=== PATIENT | female | born 1945 | race Caucasian/White ===

== ENCOUNTER 2016-11-19 10:16 | Emergency (ER) | payer OTHER ==
[2016-11-19 10:21] VITALS: RESP 18; TEMP 98.2
[2016-11-19] MEDS ORDERED: IPRATROPIUM/ALBUTEROL 3 ML DEYVIAL IH ONE (10:32)
--- NOTE | 2016-11-19 10:35 | EDPHY ---
HPI/HX/ROS/PE/MDM Narrative: CHIEF COMPLAINT: Chest congestion HPI: The patient is a 70 y/o female arriving from urgent care complaining of chest congestion and cough for the last few days. She has a history of VSD and has been told to take antibiotics if she ever gets a chest infection so she took a few doses of amoxicillin she had at home. Neither the amoxicillin nor Mucinex helped her symptoms. She continues to complain of feeling congested with an intermittent productive cough and yellow-green mucus. She went to urgent care today, but they referred her to the ED because of a low SpO2 of 89%. She is not hypoxemic here. She denies chest pain, fever, and respiratory disease history. REVIEW OF SYSTEMS: Aside from elements discussed in the HPI, a comprehensive 10-point review of systems was reviewed and is negative. PMH: Hypertension, hyperlipidemia, unrepaired VSD SOCIAL HISTORY: Lives in [place] PHYSICAL EXAM: General:Patient is alert, in no acute distress. ENT:Eyes are normal to inspection. ENT inspection normal. Neck: Normal inspection. Full range of motion. Respiratory:No respiratory distress. Breath sounds clear bilaterally but some decreased air movement. Cardiovascular: Regular rate and rhythm. Strong peripheral pulses. Normal cap refill. Abdomen:The abdomen is nontender to palpation. There are no peritoneal signs. There are normal bowel sounds. Back: Normal to inspection. No tenderness to palpation. Skin: Normal color. No rash. Warm and dry. Extremities: Normal appearance. Full range of motion. Neuro: Oriented x3. Normal motor function. Normal sensory function. ED Course: This is a 70 y/o female presenting with a several day history of cough and what she describes as chest congestion. Her breath sounds are clear, but slightly distant. Her exam is otherwise unremarkable and her vitals are within normal limits. She initially described "chest heaviness" with her symptoms but is reluctant to pursue additional testing. We discussed the risks of not doing a cardiac workup. She declines additional testing for cardiac etiology including EKG and cardiac enzymes stating, "I am completely comfortable with that; I do not believe this is my heart." Plan for o [facility] treatment and chest x-ray. Study: Chest x-ray Indication: Cough Results: Chest x-ray was obtained. The results of the study are Enlarging rounded masslike density projected over the cardiac silhouette, hiatal hernia versus other mediastinal mass. Correlation with esophagram or chest CT would be of benefit in confirmation, if not imaged previously. Otherwise negative chest. The study was read by the radiologist, Dr. Osuna. I viewed the images myself on the PACS system. 1110: Discussed imaging results with the patient. She declined chest CT and states she is aware of the mass/hernia from previous imaging. She will be discharged with scripts for azithromycin, Tessalon pearls, and Hycodan syrup for her symptoms and referral to PCP if not improved over the next few days. Return precautions given. She is comfortable with this plan. MDM: This patient presents with signs and symptoms of bronchitis. She reports low oxygen saturation at urgent care, but her oxygen saturation here is above 90% and she is in no distress. Her chest x-ray does not reveal pneumonia. She has already started herself on amoxicillin secondary to obvious CP. I think azithromycin would be more appropriate coverage although in truth, no antibiotics are fully indicated. We discussed strict return precautions. I see no signs of pneumonia, pulmonary embolus, hypoxemia, acute coronary syndrome or CHF. - Data Points Medications Given: Discontinued Medications Albuterol/Ipratropium (Duoneb) 3 ml IH EDNOW ONE Stop: 11/19/16 10:33 Last Admin: 11/19/16 10:39 Dose: 3 ml General Time Seen by Provider: 11/19/16 10:27 Initial Vital Signs: Initial Vital Signs Temperature (C) 36.8 C 11/19/16 10:18 Heart Rate 91 11/19/16 10:18 Respiratory Rate 18 11/19/16 10:18 Blood Pressure 159/101 H 11/19/16 10:18 O2 Sat (%) 97 11/19/16 10:18 O2 Delivery Mode Room Air Allergies/Adverse Reactions: bupropion HCl [From Wellbutrin] Allergy (Verified 11/19/16 10:21) Home Medications: Medication Instructions Recorded AZITHROMYCIN [Z-PACK] 250 mg PO DAILY #6 tab 11/19/16 Alprazolam 0.5 mg PO 11/19/16 Amoxicillin 11/19/16 Benzonatate [Tessalon Pearles (RX)] 100 mg PO TID PRN #15 cap 11/19/16 Biotin 5,000 mcg PO 11/19/16 Escitalopram Oxalate [Lexapro] 20 mg PO 11/19/16 HYDROcodone/HOMATROPINE HYCODA 1 tsp PO Q4-6PRN PRN #120 ml 11/19/16 [Hycodan Syrup (RX)] Lisinopril [Zestril 40 mg (*)] 40 mg PO DAILY 11/19/16 Magnesium 250 mg PO 11/19/16 Omeprazole Magnesium [PRILOSEC] 10 mg PO 11/19/16 Propranolol HCl [Inderal 10mg (*)] 10 mg PO 11/19/16 Triamterene/Hydrochlorothiazid 11/19/16 [Triamterene-Hctz 75-50 mg Tab] Departure - Departure Disposition: Home, Routine, Self-Care Clinical Impression: Cough, Bronchitis Condition: Good Instructions: Benzonatate (By mouth), Azithromycin (By mouth), Acute Bronchitis (ED), Acute Cough (ED) Additional Instructions: 1. Take azithromycin as prescribed. Be sure to complete the entire prescription even if you feel better. 2. Use Tessalon pearls and Hycodan syrup as prescribed if needed for pain or cough suppression. 3. Follow up with your primary care provider for symptoms not improved over the next week. 4. Return to the ED for chest pain, severe shortness of breath, uncontrollable fever, or other worsening of condition. Referrals: Terry Lubin MD [Medical Doctor] - As per Instructions Prescriptions: AZITHROMYCIN [Z-PACK] 250 mg PO DAILY #6 tab Benzonatate [Tessalon Pearles (RX)] 100 mg PO TID PRN #15 cap PRN Reason: Cough, Severe HYDROcodone/HOMATROPINE HYCODA [Hycodan Syrup (RX)] 1 tsp PO Q4-6PRN PRN #120 ml PRN Reason: Cough, Severe Report Scribed for: Gregg Pool Report Scribed by: Sandhya Feliz Date of Report: 11/19/16 Time of Report: 10:35 Physician Review and Approval Statement: Portions of this note were transcribed by an ED scribe. I personally performed the history, physical exam, and medical decision making; and confirm the accuracy of the information in the transcribed note.
[2016-11-19 11:22] VITALS: BP 134/86; PULSE 82; O2SAT 92
== END 2016-11-19 11:21 | disposition home or self-care (01) ==
DX: J20.9 Acute bronchitis, unspecified (principal); I10 Essential (primary) hypertension

== ENCOUNTER → 2017-04-07 | Outpatient (CLI) | payer OTHER | LOC: FIMAGING 14:10 | PROVIDERS: ATTEND Internal Medicine | DX: Z12.31 Encounter for screening mammogram for malignant neoplasm of breast (principal) | CPT/HCPCS: G0202 ==

== ENCOUNTER → 2017-04-08 | Outpatient (CLI) | payer OTHER | LOC: FIMAGING 10:57 | PROVIDERS: ATTEND Internal Medicine | DX: M79.89 Other specified soft tissue disorders (principal) ==

== ENCOUNTER → 2017-06-09 | Outpatient (CLI) | payer OTHER | LOC: FIMAGING 13:41 | PROVIDERS: ATTEND Internal Medicine | DX: Z13.820 Encounter for screening for osteoporosis (principal); M81.0 Age-related osteoporosis without current pathological fracture ==

== ENCOUNTER 2018-07-02 06:49 | Observation (INO) | payer OTHER ==
--- NOTE | 2018-07-02 07:17 | EDPHY ---
H & P Stated Complaint: cough, congestion Time Seen by Provider: 07/02/18 07:12 HPI/ROS: CHIEF COMPLAINT: "Terrible chest congestion" HISTORY OF PRESENT ILLNESS: The patient is a 72 y/o female with a history of hypertension complaining of cough and chest congestion onset yesterday. Her cough is productive of clear mucus and she is coughing with every breath. She was unable to sleep last night. She has associated rhinorrhea, a mild earache, and loss of appetite. She denies sore throat, fever. She did get her flu vaccination this season. No history of respiratory disease, though she is a former smoker. She has not yet taken her antihypertensive medications today. History of VSD that is followed by a rear admiral at [facility]. REVIEW OF SYSTEMS: A ten system review of systems was performed and is negative with the exception of the items mentioned in the HPI. Past medical history: Hypertension, hyperlipidemia, depression, VSD - not repaired Past surgical history: Appendectomy, tubal ligation, tonsillectomy, heart catheterizations for VSD Family history: Noncontributory Social history: Former 1/2 pack per day smoker - quit 1997. Drinks 2-3 glasses wine per day. Lives in [place]. PCP: Dr. Joe. General Appearance: Alert. Vital signs reviewed. Blood pressure 202/102, heart rate 123 at triage. Eyes: Pupils equal and round, no conjunctival injection, no discharge. Anicteric. ENT, Mouth: Mucous membranes are moist, no oropharyngeal erythema or edema. Neck: No lymphadenopathy, supple. Respiratory: Rhonchi bilaterally, worse on right. Wheezes on left to auscultation. Cardiovascular: Tachycardic regular rhythm; no murmur, rub, or gallop. Gastrointestinal: Abdomen is soft and nontender, no masses or organomegaly. Skin: Warm and dry, no rashes on exposed skin, normal color. Back: Nontender to palpation over the thoracolumbar spine. No CVAT. Extremities: No lower extremity edema, no calf tenderness or swelling. Neurological: Alert and oriented. Moving all four extremities easily and equally. Psychiatric: Normal affect. - Personal History Current Tetanus Diphtheria and Acellular Pertussis (TDAP): Unsure - Medical/Surgical History Hx Asthma: No Hx Chronic Respiratory Disease: No Hx Diabetes: No Hx Cardiac Disease: Yes Hx Renal Disease: No Hx Cirrhosis: No Hx Alcoholism: No Hx HIV/AIDS: No Hx Splenectomy or Spleen Trauma: No Other PMH: HTN, HIGH CHOLESTEROL , VSD NOT REPAIRED, DEPRESSION - Social History Smoking Status: Former smoker Constitutional: Initial Vital Signs Temperature (C) 36.8 C 07/02/18 06:52 Heart Rate 123 H 07/02/18 06:52 Respiratory Rate 20 07/02/18 06:52 Blood Pressure 202/102 H 07/02/18 06:52 O2 Sat (%) 93 07/02/18 06:52 O2 Delivery Mode Room Air O2 (L/minute) 2 Allergies/Adverse Reactions: bupropion HCl [From Wellbutrin] Allergy (Unknown, Verified 07/02/18 11:21) Hives Home Medications: Medication Instructions Recorded ALPRAZolam [Alprazolam] 0.5 mg PO TID PRN 11/19/16 Lisinopril [Zestril 40 mg (*)] 40 mg PO DAILY 11/19/16 Propranolol HCl [Inderal 10mg (*)] 10 mg PO BID 11/19/16 Biotin [BIOTIN] 5 mg PO DAILY 07/02/18 Cholecalciferol Vit D3 [Vitamin D3 2,000 units PO DAILY 07/02/18 (*)] Cyanocobalamin (Vitamin B-12) 1,000 mcg PO DAILY 07/02/18 [Vitamin B-12] Escitalopram Oxalate [Lexapro] 20 mg PO DAILY 07/02/18 Magnesium Oxide 250 mg PO HS 07/02/18 Mirtazapine [Remeron] 30 mg PO HS 07/02/18 Multivitamins [Multivitamin (*)] 1 each PO DAILY 07/02/18 Omeprazole 20 mg PO DAILY 07/02/18 Vitamin B Complex [Vitamin B 1 each PO HS 07/02/18 Complex (OTC)] Vitamin E 1,000 unit PO DAILY 07/02/18 Medical Decision Making - Diagnostics Imaging Results: Imaging Impressions Chest X-Ray 07/02/18 07:50 Impression: Question mild bronchitis. Probable hiatal hernia. Other chronic findings, as above, which are stable. Imaging: I viewed and interpreted images myself ED Course/Re-evaluation: This is a 72 y/o female with a history of hypertension who presents with a 1- day history of a productive cough. She is coughing on exam with bilateral rhonchi and wheezes on the left. She is tachycardic, hypertensive, and was mildly hypoxemic prior to 2lpm O2 via nasal cannula. She is afebrile and does not appear dehydrated. Presentation consistent with upper respiratory infection. Plan for IV, labs, flu swab, chest x-ray, duo neb. 0904: Reevaluated patient. She is feeling improved after duo neb. She now has increased wheezes bilaterally. Another nebulizer treatment ordered. Chest x-ray: no obvious infiltrate 1015: Reassessed patient. She is saturating at 88% on room air after two breathing treatments. She is tachycardic around 145 after nebs. Her flu swab was negative. She continues to have wheezes on auscultation and her breath sounds are now more distant. Prednisone 60 mg orally given. I've recommended admission, which she agrees to. This is likely a viral syndrome that is perhaps exacerbating underlying respiratory disease (presumed COPD in former smoker). Spoke with hospitalist service. Dr. Gonzalez accepts admission. Differential Diagnosis: Shortness of breath including but not limited to pulmonary infectious process, COPD, asthma, pulmonary embolus and congestive heart failure. - Data Points Laboratory Results: Laboratory Results 07/02/18 07:15 07/02/18 07:15 07/02/18 07/02/18 07/02/18 08:45 07:15 07:15 WBC 3.80 10^3/uL 10^3/uL (3.80-9.50) RBC 3.39 10^6/uL L 10^6/uL (4.18-5.33) Hgb 12.5 g/dL L g/dL (12.6-16.3) Hct 35.6 % L % (38.0-47.0) MCV 105.0 fL H fL (81.5-99.8) MCH 36.9 pg H pg (27.9-34.1) MCHC 35.1 g/dL g/dL (32.4-36.7) RDW 12.9 % % (11.5-15.2) Plt Count 213 10^3/uL 10^3/uL (150-400) MPV 9.3 fL fL (8.7-11.7) Neut % (Auto) 51.5 % % (39.3-74.2) Lymph % (Auto) 29.2 % % (15.0-45.0) [place] % (Auto) 17.9 % H % (4.5-13.0) Eos % (Auto) 0.3 % L % (0.6-7.6) Baso % (Auto) 0.8 % % (0.3-1.7) Nucleat RBC Rel Count 0.0 % % (0.0-0.2) Absolute Neuts (auto) 1.96 10^3/uL 10^3/uL (1.70-6.50) Absolute Lymphs (auto) 1.11 10^3/uL 10^3/uL (1.00-3.00) Absolute Monos (auto) 0.68 10^3/uL 10^3/uL (0.30-0.80) Absolute Eos (auto) 0.01 10^3/uL L 10^3/uL (0.03-0.40) Absolute Basos (auto) 0.03 10^3/uL 10^3/uL (0.02-0.10) Absolute Nucleated RBC 0.00 10^3/uL 10^3/uL (0-0.01) Immature Gran % 0.3 % % (0.0-1.1) Immature Gran # 0.01 10^3/uL 10^3/uL (0.00-0.10) Sodium 135 mEq/L mEq/L (135-145) Potassium 3.6 mEq/L mEq/L (3.3-5.0) Chloride 99 mEq/L mEq/L (97-110) Carbon Dioxide 20 mEq/l L mEq/l (22-31) Anion Gap 16 mEq/L mEq/L (8-16) BUN 9 mg/dL mg/dL (7-23) Creatinine 0.7 mg/dL mg/dL (0.6-1.0) Estimated GFR > 60 Glucose 76 mg/dL mg/dL (70-100) Calcium 8.9 mg/dL mg/dL (8.5-10.4) Total Bilirubin 0.4 mg/dL mg/dL (0.1-1.4) AST 140 IU/L H IU/L (14-46) ALT 88 IU/L H IU/L (9-52) Alkaline Phosphatase 100 IU/L IU/L (38-126) Total Protein 7.0 g/dL g/dL (6.3-8.2) Albumin 4.2 g/dL g/dL (3.5-5.0) Nasal Influenza A PCR NEGATIVE FOR FLU A (NEGATIVE) Nasal Influenza B PCR NEGATIVE FOR FLU B (NEGATIVE) Medications Given: Chlordiazepoxide HCl (Librium) 10 mg PO TID SARAH Stop: 12/29/18 14:29 Last Admin: 07/02/18 15:07 Dose: 10 mg Lisinopril (Zestril) 40 mg PO DAILY SARAH Stop: 12/29/18 12:44 Last Admin: 07/02/18 12:40 Dose: 40 mg Propranolol HCl (Inderal) 10 mg PO BID SARAH Stop: 12/29/18 12:44 Last Admin: 07/02/18 14:22 Dose: 10 mg Discontinued Medications Albuterol (Proventil Neb) 3 ml IH EDNOW ONE Stop: 07/02/18 09:18 Last Admin: 07/02/18 09:27 Dose: 3 ml Albuterol/Ipratropium (Duoneb) 3 ml IH EDNOW ONE Stop: 07/02/18 07:51 Last Admin: 07/02/18 07:53 Dose: 3 ml Guaifenesin/Codeine Phosphate (Robitussin Ac) 10 ml PO ONCE ONE Stop: 07/02/18 12:13 Last Admin: 07/02/18 12:42 Dose: 10 ml Prednisone (Prednisone) 60 mg PO EDNOW ONE Stop: 07/02/18 10:37 Last Admin: 07/02/18 10:43 Dose: 60 mg Propranolol HCl (Inderal) 10 mg PO BID SARAH Stop: 12/29/18 20:59 Last Admin: 07/02/18 14:19 Dose: 10 mg Departure - Departure Disposition: [facility] Clinical Impression: Hypoxemia Acute bronchitis Qualifiers: Bronchitis organism: unspecified organism Qualified Code(s): J20.9 - Acute bronchitis, unspecified Condition: Fair Report Scribed for: Daniela Figueroa Report Scribed by: Sandhya Feliz Date of Report: 07/02/18 Time of Report: 07:49 Physician Review and Approval Statement: 07/02/18 07:16 Portions of this note were transcribed by the medical cash poster. I, Dr. Daniela Figueroa, personally performed the history, physical exam, and medical decision- making; and confirmed the accuracy of the information in the transcribed note.
[2018-07-02 07:28] LABS: PLATELET COUNT 213 10^3/uL (150-400)
[2018-07-02] MEDS ORDERED: IPRATROPIUM/ALBUTEROL 3 ML DEYVIAL IH ONE (07:50)
[2018-07-02] MEDS ORDERED: ALBUTEROL 3 ML DEYVIAL IH ONE (09:17)
[2018-07-02] MEDS ORDERED: predniSONE 20 MG TAB PO ONE (10:36)
[2018-07-02] MEDS ORDERED: ONDANSETRON 4 MG/2 ML VIAL ONE (10:57)
[2018-07-02] MEDS ORDERED: guaiFENesin/CODEINE PHOS 10 ML UDCUP PO PRN (12:12)
[2018-07-02] MEDS ORDERED: guaiFENesin/CODEINE PHOS 10 ML UDCUP PO ONE (12:12)
[2018-07-02] MEDS ORDERED: ALBUTEROL 3 ML DEYVIAL IH PRN (12:13)
[2018-07-02] MEDS ORDERED: ONDANSETRON 4 MG/2 ML VIAL IVP PRN (12:13)
[2018-07-02] MEDS ORDERED: IBUPROFEN 200 MG TAB PO PRN (12:13)
[2018-07-02] MEDS ORDERED: ONDANSETRON DISINTEGRATING 4 MG TAB PO PRN (12:13)
[2018-07-02] MEDS ORDERED: ACETAMINOPHEN 325 MG TAB PO PRN (12:13)
[2018-07-02] MEDS ORDERED: ALPRAZolam 0.5 MG TAB PO PRN (12:18)
[2018-07-02] MEDS ORDERED: ALPRAZolam 0.25 MG TAB PO PRN (12:30)
[2018-07-02] MEDS: LISINOPRIL 40 MG TAB PO SCH (12:40)
--- NOTE | 2018-07-02 13:19 | GHP ---
DATE OF ADMISSION: 07/02/2018 HISTORY OF PRESENT ILLNESS: The patient is a 72-year-old female with a history of anxiety, depressio n, hypertension, who presents with about 24-48 hours of viral syndrome sore throat, runny nose, cough. Overnight, her cough became so severe, she had a hard time sleeping and she is short of breath with wheezing. She has been a smoker for about 15 years in the past, but this is in the dist ant past. She does not carry diagnosis of COPD or other diseases. She has a history of ventricular septal defect that is followed by a pin ticket machine operator at [facility]. This is one of the newer cardiologists there with whom I am not familiar. She denies lower extremity edema, PND, orthopnea. She has had some chills, but no drenching night sweats. She has had a cough that is productive of cl ear sputum. No purulent sputum. She drinks 2-3 drinks per night. REVIEW OF SYSTEMS: Complete 10-point review of systems conducted, negative, except as noted in the H PI. ALLERGIES: Bupropion. HOME MEDICATIONS: Xanax, biotin, vitamin D3, vitamin B12, escitalopram, lisinopril, Mag oxide, liban zapine, multivitamin, omeprazole, propranolol vitamin B, vitamin D. SOCIAL HISTORY: She has 2-3 drinks per night. She lives with her here in [place]. Radha paul is her PCP. FAMILY HISTORY: Reviewed and unremarkable. PHYSICAL EXAMINATION: VITAL SIGNS: Presenting: Temp 36.8, blood pressure 202/102, pulse in the 100 s. Her blood pressure has come down a bit to 183/113. She remains tachycardic. She is receiving ne bulizers, breathing 20 times a minute, initially she was 96 on 2 L, now she is 94% on room air. GENE RAL: In no acute distress. HEENT: Sclerae anicteric. Oropharynx clear. Mucous membranes moist. NECK: Supple. No lymphadenopathy or JVD. LUNGS: Decreased air movement with wheezes and cough. T here are no areas of focal decreased breath sounds or crackles. HEART: S1, S2. There is no systoli c murmur. ABDOMEN: Soft, nontender, nondistended. LOWER EXTREMITIES: No edema. Calves are nonten chilo. SKIN: Without rash. NEUROLOGIC: Exam is nonfocal. LABORATORY/IMAGING: Nasal influenza is negative for A and B. Sodium 135, potassium 3.6, chloride 99 , bicarb 20, BUN 9, creatinine 0.7, glucose 76. AST is 140, ALT is 88, alkaline phosphatase is 100. She has a history of elevated LFTs in the past. was 61 in April. 64 in April and normal in the past. White count 3.8, hematocrit 35.6, MCV is elevated at 105, platelets are 213 ,000. Chest x-ray interpreted by me shows airways disease. There is fluid in the right fissure without car diomegaly. There is no focal infiltrate. I discussed the case with Dr. Daniela Figueroa. ASSESSMENT/PLAN: 72-year-old lady presents with viral syndrome, acute hypoxemic respiratory failure, hypertension. 1. Viral syndrome. She is influenza negative, also in the full respiratory viral panel. She does n ot need antibiotics. She received steroids in the emergency department. Given there is cough and re active airway disease, I will continue this, as well scheduled DuoNeb and scheduled Robitussin given her severe cough. 2. Acute hypoxemic respiratory failure. This was present on admission, but appears to have resolved . We will follow. 3. Elevated mean corpuscular volume. The patient's laboratory findings that her alcohol use is prob ably affecting her body with elevated MCV and elevated transaminases. I did discuss this with her. It is also possible the LFTs are from a viral syndrome; however, given the elevated MCV, I suspect no t. 4. Ventricular septal defect. The patient does not appear to have . She is followed as a n outpatient with pin ticket machine operator. 5. Leukopenia. This is consistent with viral infection. DISPOSITION: Observation status. /[id number]/MODL
--- NOTE | 2018-07-02 13:35 | ASMTCMCOM ---
CM Note YUVAL Note Notes: Case Management Chart Review for Discharge Support: Patient is a 72 year old female admitted for congestion with shortness of breath and wheezing. Patient lives in [place] with . CM met with patient, she is eager to be back in her own bed. Discharge date blanche JUAREZ independent to home. Date Signed: 07/02/2018 01:35 PM Electronically Signed By:Melida Anderson
[2018-07-02] MEDS: PROPRANOLOL HCL 10 MG TAB PO SCH ×2 (14:22→20:04)
[2018-07-02] MEDS ORDERED: PANTOPRAZOLE SODIUM 40 MG TAB PO ONE (15:45)
[2018-07-02] MEDS: IPRATROPIUM/ALBUTEROL 3 ML DEYVIAL IH SCH ×2 (16:01→21:00)
[2018-07-02] MEDS ORDERED: MAGNESIUM OXIDE 400 MG TAB PO SCH (21:00)
[2018-07-02] MEDS ORDERED: MIRTAZAPINE 30 MG TAB PO SCH (21:00)
[2018-07-02] MEDS ORDERED: VITAMIN B COMPLEX 1 EA CAP/TAB PO SCH (21:00)
[2018-07-02] MEDS ORDERED: PROPRANOLOL HCL 10 MG TAB PO SCH (21:00)
[2018-07-03] MEDS: IPRATROPIUM/ALBUTEROL 3 ML DEYVIAL IH SCH ×2 (06:33→10:10)
[2018-07-03] MEDS: PROPRANOLOL HCL 10 MG TAB PO SCH (08:00)
[2018-07-03] MEDS: LISINOPRIL 40 MG TAB PO SCH (08:00)
[2018-07-03 08:02] VITALS: BP 197/105
[2018-07-03] MEDS ORDERED: predniSONE 20 MG TAB PO SCH (09:00)
[2018-07-03] MEDS ORDERED: PANTOPRAZOLE SODIUM 40 MG TAB PO SCH (09:00)
[2018-07-03] MEDS ORDERED: ESCITALOPRAM OXALATE 10 MG TAB PO SCH (09:00)
[2018-07-03] MEDS ORDERED: VITAMIN E 1000 UNIT PO SCH (09:00)
[2018-07-03] MEDS ORDERED: BIOTIN 5 MG PO SCH (09:00)
[2018-07-03] MEDS ORDERED: CYANO/VITAMIN B12 1000 MCG TAB PO SCH (09:00)
[2018-07-03] MEDS ORDERED: CHOLECALCIFEROL VIT D3 1,000 UNITS TAB PO SCH (09:00)
[2018-07-03] MEDS ORDERED: LISINOPRIL 40 MG TAB PO SCH (09:00)
[2018-07-03] MEDS ORDERED: MULTIVITAMINS 1 EACH TAB PO SCH (09:00)
--- NOTE | 2018-07-03 10:14 | HOSPPROG ---
Hospitalist Progress Note Assessment/Plan: 72 yo f w viral uri, brief AHRF home today see dc summary Subjective: feels much better. nasal swab = parainfluenza Objective: Vital Signs Temp Pulse Resp BP Pulse Ox 36.9 C 85 14 197/105 H 97 07/03/18 07:53 07/03/18 08:00 07/03/18 07:53 07/03/18 08:00 07/03/18 07:53 Microbiology 07/02/18 12:15 Respiratory Panel (PCR) - Final Nasal, Sinus - [place] Viral Transport Parainfluenza Virus Type 1 Laboratory Results 07/03/18 04:28 07/02/18 07/03/18 07/04/18 05:59 05:59 05:59 Intake Total 750 Balance 750 - Physical Exam Constitutional: no apparent distress, appears nourished Eyes: PERRL, anicteric sclera Ears, Nose, Mouth, Throat: moist mucous membranes, hearing normal Cardiovascular: regular rate and rhythym, no murmur, rub, or gallop Respiratory: no respiratory distress, no rales or rhonchi, No expiratory wheeze Gastrointestinal: normoactive bowel sounds, soft, non-tender abdomen Genitourinary: no bladder fullness Skin: warm Musculoskeletal: full muscle strength Neurologic: AAOx3 ICD10 Worksheet Patient Problems: Problems Problem Status Onset Acute bronchitis Acute Hypoxemia Acute
--- NOTE | 2018-07-03 10:19 | ASMTLACE ---
LACE Length of stay for Answers: Less than 1 day current admission Acuity / Level of Answers: No Care: Did the patient have an inpatient admission? Comorbidities - select Answers: Other Notes: HTN; HLD all that apply # of Emergency department Answers: 1-2 visits in the last 6 months Social determinants Answers: Mental health diagnosis (anxiety, depression, pers onality disorders, etc.) Score: 5 Date Signed: 07/03/2018 10:19 AM Electronically Signed By:Ida Fajardo RN
--- NOTE | 2018-07-03 10:36 | GDS ---
DISCHARGE DIAGNOSES: 1. Parainfluenza virus infection. 2. Transient acute hypoxemic respiratory failure. 3. Transaminitis and macrocytosis attributed to alcohol use. Please see admission history and physical by Dr. Miguel Gonzalez. The patient presented with 24 hours of increased work of breathing, tremulousness, shortness of breath and cough. Respiratory panel was negative for influenza but positive for parainfluenza virus type 1. She received steroids, nebulize rs, and cough suppressants with significant improvement in her symptoms. She was tachycardic and hyp ertensive and tremulous, but concern for possible alcohol withdrawal, although I am not clear that he r alcohol use is indeed that heavy. She did have a transaminitis and an MCV of 105. She received so me Librium while here, and on the first hospital day, she was no longer tachycardic but remained trem ulous. I attribute this to the nebs. She was discharged with an albuterol inhaler. We did discuss her alcohol use, and she acknowledged that the use probably greater than is healthy, and she is disch arged home for outpatient followup with her primary care physician. She received 2 days of prednison e, but will not continue. /[id number]/MODL
--- NOTE | 2018-07-03 10:43 | ASMTDCNOTE ---
Case Management Discharge Discharge Order Complete? Answers: Yes Transportation Arranged Answers: Other Notes: Self Family Notified Answers: No Notes: Pt to notify Discharge Comments Notes: Met with patient to confirm there were no CM needs. Patient will d/c independently, she has a neighbor and daughter that provide support. She denies the need for help at home. CM available for changes. Date Signed: 07/03/2018 10:43 AM Electronically Signed By:Ida Fajardo RN
== END 2018-07-03 12:05 | disposition home or self-care (01) ==
LOC: F3E 11:15
PROVIDERS: ADMIT Internal Medicine; ATTEND Internal Medicine
DX: J20.4 Acute bronchitis due to parainfluenza virus (principal); J96.01 Acute respiratory failure with hypoxia; R74.0 Nonspecific elevation of levels of transaminase and lactic acid dehydrogenase [LDH]; R71.8 Other abnormality of red blood cells; I10 Essential (primary) hypertension; E78.5 Hyperlipidemia, unspecified; F32.9 Major depressive disorder, single episode, unspecified; Q21.0 Ventricular septal defect; Z87.891 Personal history of nicotine dependence
CPT/HCPCS: 71046; 99285; G0378; J2405; J7512

== ENCOUNTER → 2018-07-06 | Outpatient (CLI) | payer OTHER | LOC: BMCIMAGING 10:54 | PROVIDERS: ATTEND Internal Medicine | DX: J40 Bronchitis, not specified as acute or chronic (principal); R93.3 Abnormal findings on diagnostic imaging of other parts of digestive tract ==

== ENCOUNTER → 2018-11-09 | Outpatient (CLI) | payer OTHER | LOC: FIMAGING 14:14 | PROVIDERS: ATTEND Internal Medicine Cardiovascular Disease | DX: R60.9 Edema, unspecified (principal) ==

== ENCOUNTER 2018-12-21 11:19 | Observation (INO) | payer OTHER ==
--- NOTE | 2018-12-21 11:46 | EDPHY ---
HPI/HX/ROS/PE/MDM Narrative: CHIEF COMPLAINT: Abnormal lab results HPI: The patient is a 73-year-old female with a history of chronic hyponatremia and hypertension. The patient underwent routine lab testing yesterday and was called by her doctor saying something was wrong with her kidney and she was instructed to present to the ER. The patient reports a new blood pressure medication starting with the letter A was initiated 2 weeks ago. She has also been on a water restriction diet for approximately the last month. She denies any complaints whatsoever. She specifically denies chest pain, shortness of breath. She states her legs have been swollen and itching more than normal recently. REVIEW OF SYSTEMS: Aside from elements discussed in the HPI, a comprehensive 10-point review of systems was reviewed and is negative. PMH: Hypertension, hyponatremia. SOCIAL HISTORY: Denies alcohol or drug abuse. PHYSICAL EXAM: General:Patient is alert, in no acute distress. ENT:Eyes are normal to inspection. ENT inspection normal. Neck: Normal inspection. Full range of motion. Respiratory:No respiratory distress. Breath sounds normal bilaterally. Cardiovascular: Regular rate and rhythm. Strong peripheral pulses. Normal cap refill. Abdomen:The abdomen is nontender to palpation. There are no peritoneal signs. There are normal bowel sounds. Back: Normal to inspection. No tenderness to palpation. Skin: Normal color. No rash. Warm and dry. Extremities: Bilateral leg swelling and mild excoriation noted. Neuro: Oriented x3. Normal motor function. Normal sensory function. ED Course: Lab results indicate continued hyponatremia and even worsened acute renal insufficiency. I called and spoke with Dr. Rodriguez from Nephrology who recommends that we admit the patient for further workup and treatment. Patient is in agreement. Patient accepted to service of Dr. Juarez. Additional labs ordered. I suspect this is likely secondary to a combination of additional antihypertensive meds and fluid restriction. I see no sign of sepsis, trauma, severe electrolyte disturbance. - Data Points Laboratory Results: Laboratory Results 12/21/18 11:55 12/21/18 11:55 12/21/18 12/21/18 12/21/18 11:55 11:55 11:55 WBC 4.89 10^3/uL 10^3/uL (3.80-9.50) RBC 3.11 10^6/uL L 10^6/uL (4.18-5.33) Hgb 12.0 g/dL L g/dL (12.6-16.3) Hct 34.4 % L % (38.0-47.0) MCV 110.6 fL H fL (81.5-99.8) MCH 38.6 pg H pg (27.9-34.1) MCHC 34.9 g/dL g/dL (32.4-36.7) RDW 12.5 % % (11.5-15.2) Plt Count 276 10^3/uL 10^3/uL (150-400) MPV 9.4 fL fL (8.7-11.7) Neut % (Auto) 45.6 % % (39.3-74.2) Lymph % (Auto) 34.4 % % (15.0-45.0) [place] % (Auto) 15.3 % H % (4.5-13.0) Eos % (Auto) 3.3 % % (0.6-7.6) Baso % (Auto) 1.0 % % (0.3-1.7) Nucleat RBC Rel Count 0.0 % % (0.0-0.2) Absolute Neuts (auto) 2.23 10^3/uL 10^3/uL (1.70-6.50) Absolute Lymphs (auto) 1.68 10^3/uL 10^3/uL (1.00-3.00) Absolute Monos (auto) 0.75 10^3/uL 10^3/uL (0.30-0.80) Absolute Eos (auto) 0.16 10^3/uL 10^3/uL (0.03-0.40) Absolute Basos (auto) 0.05 10^3/uL 10^3/uL (0.02-0.10) Absolute Nucleated RBC 0.00 10^3/uL 10^3/uL (0-0.01) Immature Gran % 0.4 % % (0.0-1.1) Immature Gran # 0.02 10^3/uL 10^3/uL (0.00-0.10) Sodium 125 mEq/L L mEq/L (135-145) Potassium 5.0 mEq/L mEq/L (3.5-5.2) Chloride 90 mEq/L L mEq/L (97-110) Carbon Dioxide 20 mEq/l L mEq/l (22-31) Anion Gap 15 mEq/L H mEq/L (6-14) BUN 19 mg/dL mg/dL (7-23) Creatinine 2.3 mg/dL H mg/dL (0.6-1.0) Estimated GFR 21 Glucose 79 mg/dL mg/dL (70-100) Calcium 9.2 mg/dL mg/dL (8.5-10.4) TSH Pending General Time Seen by Provider: 12/21/18 11:30 Initial Vital Signs: Initial Vital Signs Temperature (C) 36.5 C 12/21/18 11:23 Heart Rate 71 12/21/18 11:23 Respiratory Rate 18 12/21/18 11:23 Blood Pressure 94/54 L 12/21/18 11:23 O2 Sat (%) 95 12/21/18 11:23 O2 Delivery Mode Room Air Allergies/Adverse Reactions: bupropion HCl [From Wellbutrin] Allergy (Unknown, Verified 12/21/18 11:25) Hives Home Medications: Medication Instructions Recorded ALPRAZolam [Alprazolam] 0.5 mg PO TID PRN 11/19/16 Lisinopril [Zestril 40 mg (*)] 40 mg PO DAILY 11/19/16 Propranolol HCl [Inderal 10mg (*)] 10 mg PO BID 11/19/16 Biotin [BIOTIN] 5 mg PO DAILY 07/02/18 Cholecalciferol Vit D3 [Vitamin D3 2,000 units PO DAILY 07/02/18 (*)] Cyanocobalamin (Vitamin B-12) 1,000 mcg PO DAILY 07/02/18 [Vitamin B-12] Escitalopram Oxalate [Lexapro] 20 mg PO DAILY 07/02/18 Magnesium Oxide 250 mg PO HS 07/02/18 Mirtazapine [Remeron] 30 mg PO HS 07/02/18 Multivitamins [Multivitamin (*)] 1 each PO DAILY 07/02/18 Omeprazole 20 mg PO DAILY 07/02/18 Vitamin B Complex [Vitamin B 1 each PO HS 07/02/18 Complex (OTC)] Vitamin E 1,000 unit PO DAILY 07/02/18 Albuterol Hfa Anes Only [Proair 2 puffs IH QID PRN #1 mdi 07/03/18 Hfa Icu (*)] Departure - Departure Disposition: [facility] Acute Clinical Impression: Acute renal insufficiency, Hyponatremia Condition: Fair
[2018-12-21 12:03] LABS: PLATELET COUNT 276 10^3/uL (150-400)
[2018-12-21] MEDS ORDERED: ONDANSETRON DISINTEGRATING 4 MG TAB PO PRN (14:17)
[2018-12-21] MEDS ORDERED: ACETAMINOPHEN 325 MG TAB PO PRN (14:17)
[2018-12-21] MEDS ORDERED: ONDANSETRON 4 MG/2 ML VIAL IVP PRN (14:17)
--- NOTE | 2018-12-21 14:33 | PDGENHP ---
<Celi Lyle - Last Filed: 12/21/18 16:43> History and Physical - Chief Complaint Bilateral extremity edema, hyponatremia - History of Present Illness 73 y/o female w/ hx of hypertension and ventricular septal defect presents under the recommendation of her PCP, Dr. Guzman, for chronic bilateral leg swelling and hyponatremia. She reports she has lived a sedentary lifestyle right around the time of her bronchitis which was at the beginning of the year. She feels like it took her 2 months for her bronchitis to resolve. She is ROSE however this may be d/t deconditioning. Denies CP, palpitations, fevers or chills. For the last few months, she noticed bilateral leg edema w/pitting, L > R leg as well as nausea, decreased appetite, occasional vomiting, and diarrhea. For the last month, her sodium have been low. Her PCP placed her on a water restriction d/t these two things. She recently had lab work performed and noticed her renal function was abnormal. She is now being admitted for further work-up, treatment and monitoring. History Information - Allergies/Home Medication List Allergies/Adverse Reactions: bupropion HCl [From Wellbutrin] Allergy (Unknown, Verified 12/21/18 11:25) Hives Home Medications: RX: Lisinopril [Zestril 40 mg (*)] 40 mg PO DAILY 11/19/16 [Last Taken 12/21/18] RX: Propranolol HCl [Inderal 10mg (*)] 10 mg PO BID 11/19/16 [Last Taken ] RX: Cholecalciferol Vit D3 [Vitamin D3 (*)] 2,000 units PO DAILY 07/02/18 [Last Taken 12/21/18] RX: Cyanocobalamin (Vitamin B-12) [Vitamin B-12] 1,000 mcg PO DAILY 07/02/18 [ Last Taken 12/21/18] RX: Escitalopram Oxalate [Lexapro] 20 mg PO DAILY 07/02/18 [Last Taken 12/21/18] RX: Vitamin B Complex [Vitamin B Complex (OTC)] 1 each PO HS 07/02/18 [Last Taken 12/20/18] Furosemide [Lasix 20 MG (*)] 60 mg PO DAILY 12/21/18 [Last Taken 12/21/18 08:00] Mirtazapine [Remeron] 15 mg PO HS 12/21/18 [Last Taken 12/20/18] RX: Herbals/Supplements -Info Only 1 ea PO DAILY 12/21/18 [Last Taken Unknown] RX: Omeprazole 40 mg PO DAILY 12/21/18 [Last Taken 12/21/18] Spironolactone [Aldactone 25 MG (*)] 25 mg PO DAILY 12/21/18 [Last Taken ] I have personally reviewed and updated: family history, medical history, social history, surgical history - Past Medical History hypertension, hyperlipidemia Additional medical history: Anxiety, depression, ventricular septal defect (not repaired, congential), right ovarian cyst - Surgical History Reports: appendectomy Additional surgical history: Tonsillectomy - Family History Positive for: non-pertinent - Social History Smoking Status: Former smoker Alcohol Use: Occasionally (2-3 wine glasses/night) Drug Use: None Additional social history: . Lives in an apartment in [place]. Sedentary lifestyle. Moved from [place] in 2013. Review of Systems Review of Systems: ROS: 10pt was reviewed & negative except for what was stated in HPI & below Physical Exam Physical Exam: Lab data and imaging were reviewed. Na: 125 BUN/Cr: 19/2.3 GFR: 21 TSH: 1.670 Temp Pulse Resp BP Pulse Ox 36.9 C 67 18 121/50 H 95 12/21/18 13:14 12/21/18 13:14 12/21/18 13:14 12/21/18 13:14 12/21/18 13:14 Constitutional: no apparent distress, uncomfortable, other (Pleasant, cooperative female) Eyes: PERRL, anicteric sclera, EOMI Ears, Nose, Mouth, Throat: hearing normal, ears appear normal, no oral mucosal ulcers, dry mucous membranes Cardiovascular: regular rate and rhythym, no murmur, rub, or gallop, No edema Peripheral Pulses: 2+: dorsalis-pedis (R) (Radial 2+), dorsalis-pedis (L) ( Radial 2+) Respiratory: no respiratory distress, no rales or rhonchi, clear to auscultation Gastrointestinal: normoactive bowel sounds, soft, non-tender abdomen, no palpable masses Genitourinary: no bladder fullness, no bladder tenderness Skin: warm, rash (L > R thomas - pruritis) Musculoskeletal: full muscle strength, no muscle tenderness, normal joint ROM, no joint effusions Neurologic: AAOx3, sensation intact bilaterally, CN II-XII Intact Psychiatric: interacting appropriately, not anxious, not encephalopathic, thought process linear Lymph, Heme, Immunologic: no cervical LAD, no supraclavicular LAD Lab Data & Imaging Review 12/21/18 11:55 12/21/18 11:55 WBC 4.89 10^3/uL (3.80-9.50) 12/21/18 11:55 RBC 3.11 10^6/uL (4.18-5.33) L 12/21/18 11:55 Hgb 12.0 g/dL (12.6-16.3) L 12/21/18 11:55 Hct 34.4 % (38.0-47.0) L 12/21/18 11:55 MCV 110.6 fL (81.5-99.8) H 12/21/18 11:55 MCH 38.6 pg (27.9-34.1) H 12/21/18 11:55 MCHC 34.9 g/dL (32.4-36.7) 12/21/18 11:55 RDW 12.5 % (11.5-15.2) 12/21/18 11:55 Plt Count 276 10^3/uL (150-400) 12/21/18 11:55 MPV 9.4 fL (8.7-11.7) 12/21/18 11:55 Neut % (Auto) 45.6 % (39.3-74.2) 12/21/18 11:55 Lymph % (Auto) 34.4 % (15.0-45.0) 12/21/18 11:55 [place] % (Auto) 15.3 % (4.5-13.0) H 12/21/18 11:55 Eos % (Auto) 3.3 % (0.6-7.6) 12/21/18 11:55 Baso % (Auto) 1.0 % (0.3-1.7) 12/21/18 11:55 Nucleat RBC Rel Count 0.0 % (0.0-0.2) 12/21/18 11:55 Absolute Neuts (auto) 2.23 10^3/uL (1.70-6.50) 12/21/18 11:55 Absolute Lymphs (auto) 1.68 10^3/uL (1.00-3.00) 12/21/18 11:55 Absolute Monos (auto) 0.75 10^3/uL (0.30-0.80) 12/21/18 11:55 Absolute Eos (auto) 0.16 10^3/uL (0.03-0.40) 12/21/18 11:55 Absolute Basos (auto) 0.05 10^3/uL (0.02-0.10) 12/21/18 11:55 Absolute Nucleated RBC 0.00 10^3/uL (0-0.01) 12/21/18 11:55 Immature Gran % 0.4 % (0.0-1.1) 12/21/18 11:55 Immature Gran # 0.02 10^3/uL (0.00-0.10) 12/21/18 11:55 Sodium 125 mEq/L (135-145) L 12/21/18 11:55 Potassium 5.0 mEq/L (3.5-5.2) 12/21/18 11:55 Chloride 90 mEq/L (97-110) L 12/21/18 11:55 Carbon Dioxide 20 mEq/l (22-31) L 12/21/18 11:55 Anion Gap 15 mEq/L (6-14) H 12/21/18 11:55 BUN 19 mg/dL (7-23) 12/21/18 11:55 Creatinine 2.3 mg/dL (0.6-1.0) H 12/21/18 11:55 Estimated GFR 21 12/21/18 11:55 Glucose 79 mg/dL (70-100) 12/21/18 11:55 Calcium 9.2 mg/dL (8.5-10.4) 12/21/18 11:55 TSH 1.670 uIU/mL (0.465-4.680) 12/21/18 11:55 Assessment & Plan Plan: 73 y/o female w/ hx of HTN and ventricular septal defect presenting w/ hyponatremia, one month water restriction, bilateral lower extremity edema w/ pitting. She has been symptomatic w/nausea, decreased appetite, occasional emesis, and diarrhea for the last few months. She established care w/Dr. Sequeira at [facility] and has been fully worked up cardiovascularly tello w/ the following testing: recent negative US for DVTs, nuclear medicine stress test w/ normal perfusion and echo showing small membranous VSD, trivial to mild TR and upper normal PA pressure, LVEF 60%. In 2016, she had a pelvic sonogram to f/u probably benign pelvic cystic structure in the right adnexa that was discovered in 2014 and results show the cystic structure increased in size (from 6.2 x 6.0 x 5.8 cm to 7.3 x 6.3 x 6.4cm). She is hemodynamically stable w/vitals of BP 121/50, HR 73, Resp 18, 36.0c, 95% RA. #Acute renal insufficiency: Pt's creatinine has steadily increased over the last few months from 0.7 to 2.3. She was placed on a water restriction this month. -Nephrology consulted. See Dr. Olguin's teamcenter consultant note for full recommendations but to briefly summarize: holding IVF while evaluating hyponatremia, UA/urine PCR/SPEP/free light/urine osm/urine protein/urine creatinine pending, will repeat urine Na in AM since pt took diuretic today -Abdominal US to evaluate renal function -Avoid nephrotoxic agents and holding lisinopril and diuretics until renal function improves #Hyponatremia: Pt's Na has steadily decreased over the last few months from 138 to 125 and has remained around 125 for a week or two. TSH 1.670 -Cont fluid restriction of 1500 ml daily -Urine Na/urine osm/and serum osm pending -Holding diuretics (furosemide, spironolactone) for the time being -Sodium bicarb initiated #Transaminitis: She reports drinking 2-3 glasses of wine/night. -Ab US to review liver; depending on findings, recommend checking hepatitis panel #Bilateral lower extremity edema: Per pt, edema has significantly improved. Mild non-pitting edema during my assessment w/ dry, scaly skin which she reports itchiness. She has been scratching the area profusely w/ her nails and the heel of her shoes. RN to provide lotion to BLE for dryness and reduce pruritus. She did not want Benadryl. I encouraged her to not scratch or use the bottom of her heel considering nails and soles of shoes are breeding grounds for bacteria and w/dry, scaly skin, this leaves a pathway for bacteria to get into and create an infection. -Pelvis US to review if ovarian cyst is pressing on pelvis vessels #Diarrhea: She reports experiencing loose/watery stools w/ occasional formed stools within the last few months. Decreased appetite w/occasional vomiting. No hematochezia, hematemesis, or melena. -GI pathogen panel pending #HTN: on atenolol and propranolol. Cont to monitor BP. #Sedentary lifestyle -PT/OT to evaluate and treat for generalized weakness and deconditioned Diet: Regular VTE ppx: Heparin subq Code: Full Dispo: Admit to obs <Scout Juarez - Last Filed: 12/21/18 18:39> History and Physical - History of Present Illness Review of Systems Review of Systems: Physical Exam Physical Exam: Temp Pulse Resp BP Pulse Ox 35.9 C L 63 18 140/75 H 95 12/21/18 15:55 12/21/18 15:55 12/21/18 15:55 12/21/18 15:55 12/21/18 15:55 Lab Data & Imaging Review 12/21/18 11:55 12/21/18 11:55 WBC 4.89 10^3/uL (3.80-9.50) 12/21/18 11:55 RBC 3.11 10^6/uL (4.18-5.33) L 12/21/18 11:55 Hgb 12.0 g/dL (12.6-16.3) L 12/21/18 11:55 Hct 34.4 % (38.0-47.0) L 12/21/18 11:55 MCV 110.6 fL (81.5-99.8) H 12/21/18 11:55 MCH 38.6 pg (27.9-34.1) H 12/21/18 11:55 MCHC 34.9 g/dL (32.4-36.7) 12/21/18 11:55 RDW 12.5 % (11.5-15.2) 12/21/18 11:55 Plt Count 276 10^3/uL (150-400) 12/21/18 11:55 MPV 9.4 fL (8.7-11.7) 12/21/18 11:55 Neut % (Auto) 45.6 % (39.3-74.2) 12/21/18 11:55 Lymph % (Auto) 34.4 % (15.0-45.0) 12/21/18 11:55 [place] % (Auto) 15.3 % (4.5-13.0) H 12/21/18 11:55 Eos % (Auto) 3.3 % (0.6-7.6) 12/21/18 11:55 Baso % (Auto) 1.0 % (0.3-1.7) 12/21/18 11:55 Nucleat RBC Rel Count 0.0 % (0.0-0.2) 12/21/18 11:55 Absolute Neuts (auto) 2.23 10^3/uL (1.70-6.50) 12/21/18 11:55 Absolute Lymphs (auto) 1.68 10^3/uL (1.00-3.00) 12/21/18 11:55 Absolute Monos (auto) 0.75 10^3/uL (0.30-0.80) 12/21/18 11:55 Absolute Eos (auto) 0.16 10^3/uL (0.03-0.40) 12/21/18 11:55 Absolute Basos (auto) 0.05 10^3/uL (0.02-0.10) 12/21/18 11:55 Absolute Nucleated RBC 0.00 10^3/uL (0-0.01) 12/21/18 11:55 Immature Gran % 0.4 % (0.0-1.1) 12/21/18 11:55 Immature Gran # 0.02 10^3/uL (0.00-0.10) 12/21/18 11:55 PT 12.2 SEC (12.0-15.0) 12/21/18 11:55 INR 0.94 (0.83-1.16) 12/21/18 11:55 Sodium 125 mEq/L (135-145) L 12/21/18 11:55 Potassium 5.0 mEq/L (3.5-5.2) 12/21/18 11:55 Chloride 90 mEq/L (97-110) L 12/21/18 11:55 Carbon Dioxide 20 mEq/l (22-31) L 12/21/18 11:55 Anion Gap 15 mEq/L (6-14) H 12/21/18 11:55 BUN 19 mg/dL (7-23) 12/21/18 11:55 Creatinine 2.3 mg/dL (0.6-1.0) H 12/21/18 11:55 Estimated GFR 21 12/21/18 11:55 Glucose 79 mg/dL (70-100) 12/21/18 11:55 Calcium 9.2 mg/dL (8.5-10.4) 12/21/18 11:55 Total Bilirubin 1.0 mg/dL (0.1-1.4) 12/21/18 11:55 Conjugated Bilirubin 0.7 mg/dL (0.0-0.5) H 12/21/18 11:55 Unconjugated Bilirubin 0.3 mg/dL (0.0-1.1) 12/21/18 11:55 AST 129 IU/L (14-46) H 12/21/18 11:55 ALT 109 IU/L (9-52) H 12/21/18 11:55 Alkaline Phosphatase 126 IU/L (38-126) 12/21/18 11:55 Total Protein 6.9 g/dL (6.3-8.2) 12/21/18 11:55 Total Protein (PEP) 6.9 g/dL (6.3-8.2) 12/21/18 11:55 Albumin 4.1 g/dL (3.5-5.0) 12/21/18 11:55 TSH 1.670 uIU/mL (0.465-4.680) 12/21/18 11:55 Urine Color YELLOW 12/21/18 17:50 Urine Appearance CLEAR 12/21/18 17:50 Urine pH 5.0 (5.0-7.5) 12/21/18 17:50 Ur Specific [place] 1.006 (1.002-1.030) 12/21/18 17:50 Urine Protein NEGATIVE (NEGATIVE) 12/21/18 17:50 Urine Ketones NEGATIVE (NEGATIVE) 12/21/18 17:50 Urine Blood NEGATIVE (NEGATIVE) 12/21/18 17:50 Urine Nitrate NEGATIVE (NEGATIVE) 12/21/18 17:50 Urine Bilirubin NEGATIVE (NEGATIVE) 12/21/18 17:50 Urine Urobilinogen NEGATIVE EU (0.2-1.0) 12/21/18 17:50 Ur Leukocyte Esterase NEGATIVE (NEGATIVE) 12/21/18 17:50 Ur Random Creatinine 40.3 mg/dL 12/21/18 14:10 U Random Total Protein 16 mg/dL (0-11) H 12/21/18 17:50 Ur Random Sodium 37 mEq/L (30-90) 12/21/18 14:10 Urine Glucose NEGATIVE (NEGATIVE) 12/21/18 17:50 Assessment & Plan Assessment: Acute renal insufficiency (Acute) Hyponatremia (Acute) Plan: Chart reviewed, patietn personally examined, and case discussed with uLdmila Lyle NP. Agree with plan outlined above. Please see separate note for additional details.
--- NOTE | 2018-12-21 15:40 | PDCONSULT ---
Flow Coordinator Note: Assessment/Plan: HILDA: pt has recently had baseline Cr of 1.0, was up to 1.4 last week and steadily increasing to 2.3 today, nonoliguric, lytes ok. - No need for HD at this time. - Will hold Lasix for now. - Would consider stopping atenolol if BP remains low. - Will hold off on giving IVFs for now while evaluating hyponatremia. - Will check UA, urine PCR, renal US, SPEP and free light chains. - Will repeat urine sodium tomorrow am as pt took Lasix this am. - Avoid hypotension and nephrotoxins. - Will continue to monitor. Hyponatremia: sodium has been stable at 125 since last week, has some degree of chronic hyponatremia, may be worsened in setting of HILDA and diuretic usage, pt also has been on SSRI at home intermediate. - Will hold Lasix. - Will continue fluid restriction of 1500ml daily. - Will continue to monitor sodium BID for now. - Will check urine sodium, urine osm and serum osm. - TSH wnl. - WIll check am cortisol. - Starting on sodium bicarb tabs as below. Metabolic acidosis: in setting of HILDA, will give sodium bicarb tabs and monitor. Edema: markedly improved per pt, will continue fluid restriction but holding Lasix for now as above. Thank you for the interesting consult. Nephrology will continue to follow, please call if you have any additional questions or concerns. H & P Stated Complaint: Sent by system operator Time Seen by Provider: 12/21/18 11:30 HPI/ROS: HPI: Ms. Workman is a 73 yo F with h/o HTN and ventricular septal defect who is being admitted today for swelling, hyponatremia and HILDA. On looking back at labs, her Cr had been around 0.7 last year but has been around 1.0 since 06/2018. She also has had mild chronic hyponatremia for a few years, usually in low to mid 130s. In 10/2018, Cr was still 1.0. On 12/12/18, Cr was up to 1.4 and Na was 125. Cr was up to 1.9 yesterday and 2.3 today, with Na remaining 125 in that time. Pt states that she developed problems with swelling 3-4 months ago that was new for her, had never had issues with swelling before. She underwent cardiac workup with Dr. Sequeira and was told everything was fine. She continued to have worsening swelling, was switched from HCTZ to Lasix and was taking 60mg daily. Her swelling improved to nearly gone as of 3 weeks ago and has stayed there. However, in the past few weeks she has had increasing nausea and occasional vomiting. She also notes that she generally has watery stools. She denies any NSAID usage. She has been following a 1.5L fluid restriction at home. ROS: positive per HPI and for itching over L leg and chronic low back pain, rest of 10-point ROS negative Source: Patient - Personal History Current Tetanus/Diphtheria Vaccine: Yes - Medical/Surgical History Hx Asthma: No Hx Chronic Respiratory Disease: No Hx Diabetes: No Hx Cardiac Disease: Yes Hx Renal Disease: No Hx Cirrhosis: No Hx Alcoholism: No Hx HIV/AIDS: No Hx Splenectomy or Spleen Trauma: No Other PMH: HTN, HIGH CHOLESTEROL , VSD NOT REPAIRED, DEPRESSION - Family History Significant Family History: No pertinent family hx - Social History Smoking Status: Former smoker - Physical Exam Exam: General: alert and oriented, no acute distress Eyes: EOMI, PERRL OP: Clear, MMM Neck: supple, no thyromegaly CV: RRR, +trace edema BLE Resp: CTA bilat, nonlabored respirations on RA Abd: Soft, NT/ND Neuro: CN II-XII Grossly intact, no asterixis Psych: cooperative, appropriate mood and affect Skin: C/D/I, erythematous over L leg MSK: no gross deformities or synovitis Constitutional: Initial Vital Signs Temperature (C) 36.5 C 12/21/18 11:23 Heart Rate 71 12/21/18 11:23 Respiratory Rate 18 12/21/18 11:23 Blood Pressure 94/54 L 12/21/18 11:23 O2 Sat (%) 95 12/21/18 11:23 O2 Delivery Mode Room Air Allergies/Adverse Reactions: bupropion HCl [From Wellbutrin] Allergy (Unknown, Verified 12/21/18 11:25) Hives Home Medications: Medication Instructions Recorded Lisinopril [Zestril 40 mg (*)] 40 mg PO DAILY 11/19/16 Propranolol HCl [Inderal 10mg (*)] 10 mg PO BID 11/19/16 Cholecalciferol Vit D3 [Vitamin D3 2,000 units PO DAILY 07/02/18 (*)] Cyanocobalamin (Vitamin B-12) 1,000 mcg PO DAILY 07/02/18 [Vitamin B-12] Escitalopram Oxalate [Lexapro] 20 mg PO DAILY 07/02/18 Vitamin B Complex [Vitamin B 1 each PO HS 07/02/18 Complex (OTC)] Atenolol [Tenormin 25 mg (*)] 25 mg PO DAILY 12/21/18 Herbals/Supplements -Info Only 1 ea PO DAILY 12/21/18 Mirtazapine [Remeron] 15 mg PO HS 12/21/18 Omeprazole 40 mg PO DAILY 12/21/18 Spironolactone [Aldactone 25 MG 25 mg PO DAILY 12/21/18 (*)] Lab and Imaging 12/21/18 11:55 12/21/18 11:55 WBC 4.89 10^3/uL (3.80-9.50) 12/21/18 11:55 RBC 3.11 10^6/uL (4.18-5.33) L 12/21/18 11:55 Hgb 12.0 g/dL (12.6-16.3) L 12/21/18 11:55 Hct 34.4 % (38.0-47.0) L 12/21/18 11:55 MCV 110.6 fL (81.5-99.8) H 12/21/18 11:55 MCH 38.6 pg (27.9-34.1) H 12/21/18 11:55 MCHC 34.9 g/dL (32.4-36.7) 12/21/18 11:55 RDW 12.5 % (11.5-15.2) 12/21/18 11:55 Plt Count 276 10^3/uL (150-400) 12/21/18 11:55 MPV 9.4 fL (8.7-11.7) 12/21/18 11:55 Neut % (Auto) 45.6 % (39.3-74.2) 12/21/18 11:55 Lymph % (Auto) 34.4 % (15.0-45.0) 12/21/18 11:55 Real % (Auto) 15.3 % (4.5-13.0) H 12/21/18 11:55 Eos % (Auto) 3.3 % (0.6-7.6) 12/21/18 11:55 Baso % (Auto) 1.0 % (0.3-1.7) 12/21/18 11:55 Nucleat RBC Rel Count 0.0 % (0.0-0.2) 12/21/18 11:55 Absolute Neuts (auto) 2.23 10^3/uL (1.70-6.50) 12/21/18 11:55 Absolute Lymphs (auto) 1.68 10^3/uL (1.00-3.00) 12/21/18 11:55 Absolute Monos (auto) 0.75 10^3/uL (0.30-0.80) 12/21/18 11:55 Absolute Eos (auto) 0.16 10^3/uL (0.03-0.40) 12/21/18 11:55 Absolute Basos (auto) 0.05 10^3/uL (0.02-0.10) 12/21/18 11:55 Absolute Nucleated RBC 0.00 10^3/uL (0-0.01) 12/21/18 11:55 Immature Gran % 0.4 % (0.0-1.1) 12/21/18 11:55 Immature Gran # 0.02 10^3/uL (0.00-0.10) 12/21/18 11:55 Sodium 125 mEq/L (135-145) L 12/21/18 11:55 Potassium 5.0 mEq/L (3.5-5.2) 12/21/18 11:55 Chloride 90 mEq/L (97-110) L 12/21/18 11:55 Carbon Dioxide 20 mEq/l (22-31) L 12/21/18 11:55 Anion Gap 15 mEq/L (6-14) H 12/21/18 11:55 BUN 19 mg/dL (7-23) 12/21/18 11:55 Creatinine 2.3 mg/dL (0.6-1.0) H 12/21/18 11:55 Estimated GFR 21 12/21/18 11:55 Glucose 79 mg/dL (70-100) 12/21/18 11:55 Calcium 9.2 mg/dL (8.5-10.4) 12/21/18 11:55 Total Bilirubin 1.0 mg/dL (0.1-1.4) 12/21/18 11:55 Conjugated Bilirubin 0.7 mg/dL (0.0-0.5) H 12/21/18 11:55 Unconjugated Bilirubin 0.3 mg/dL (0.0-1.1) 12/21/18 11:55 AST 129 IU/L (14-46) H 12/21/18 11:55 ALT 109 IU/L (9-52) H 12/21/18 11:55 Alkaline Phosphatase 126 IU/L (38-126) 12/21/18 11:55 Total Protein 6.9 g/dL (6.3-8.2) 12/21/18 11:55 Albumin 4.1 g/dL (3.5-5.0) 12/21/18 11:55 TSH 1.670 uIU/mL (0.465-4.680) 12/21/18 11:55 Ur Random Creatinine 40.3 mg/dL 12/21/18 14:10
[2018-12-21 15:53] LABS: INR 0.94 (0.83-1.16); PROTIME(PATIENT) 12.2 SEC (12.0-15.0)
[2018-12-21] MEDS: SODIUM BICARBONATE 650 MG TAB PO SCH ×2 (17:21→21:41)
--- NOTE | 2018-12-21 18:15 | HOSPPROG ---
Hospitalist Progress Note Assessment/Plan: Discussed case with Ludmila Lyle [employer] and agree with findings outlined in her note with the following exceptions: Briefly, 73yo F with HTN, VSD sent to ED after recent labs showed renal insufficiency. She had been having worsening leg edema and was started on lasix. Her edema improved but kidney function worsened prompting admission. She has seen cardiology (Dr Sequeira) as outpatient to [facility]; had echocardiogram and stress test that were normal. She also had leg doppler ultrasound that was negative for DVT. Her creatinine is 2.3 on admission, up from baseline around 1.0. Her sodium is also 125. She appears to have chronic hyponatremia but this is on the low end for her. She has also been borderline hypotensive with SBP 90s on admission. Pertinent exam: Heart rrr without murmur, lungs clear without rales, abdomen nondistended, legs with symmetric pitting edema to mid-thomas, some erythema of bilateral legs. Labs: Na 125, K 5.0, Cl 90, CO2 20, BUN 19, Cr 2.3, glucose 79, total bili 1.0, ast 129, alt 109, alk phos 126, hemoglobin 12.0, MCV 110. A/P: 73yo F with htn, recently started on diuretics here with hilda and hyponatremia. #HILDA: Suspect hypotension, diuretics in setting of shaq inhibitor. Holding lisinopril, spironolactone, lasix. Checking renal US, urine studies. Renal consulted who has sent off additional studies as well. #Acute on chronic hyponatremia: Likely driven by diuretics. Check urine osm/na. 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 She is being fluid restricted and given salt tabs. #Metabolic acidosis: D/t renal insufficiency. Started on bicarb. #BLE edema: Much improved. #Transaminitis: Somewhat chronic, likely r/t alcohol use. #Macrocytic anemia: Again, concern that this is driven by her alcohol usage. Dispo: Admit under observation Objective: Vital Signs Temp Pulse Resp BP Pulse Ox 35.9 C L 63 18 140/75 H 95 12/21/18 15:55 12/21/18 15:55 12/21/18 15:55 12/21/18 15:55 12/21/18 15:55 03/27/19 03/28/19 03/29/19 05:59 05:59 05:59 Intake Total 200 Balance 200 PT 12.2 SEC (12.0-15.0) 12/21/18 11:55 INR 0.94 (0.83-1.16) 12/21/18 11:55 ICD10 Worksheet Patient Problems: Problems Problem Status Onset Acute renal insufficiency Acute Hyponatremia Acute Acute bronchitis Acute Hypoxemia Acute
[2018-12-21] MEDS: MIRTAZAPINE 15 MG TAB PO SCH (21:41)
[2018-12-21] MEDS: PROPRANOLOL HCL 10 MG TAB PO SCH (21:41)
[2018-12-21] MEDS: HEPARIN 5,000 UNIT/0.5 ML INJ SC SCH (21:42)
[2018-12-21] MEDS: RED WINE 120 ML BOTTLE PO SCH (21:47)
[2018-12-22 05:28] LABS: PLATELET COUNT 238 10^3/uL (150-400)
[2018-12-22] MEDS: HEPARIN 5,000 UNIT/0.5 ML INJ SC SCH ×3 (06:33→20:58)
[2018-12-22] MEDS: SODIUM BICARBONATE 650 MG TAB PO SCH ×2 (08:15→20:59)
[2018-12-22] MEDS: PROPRANOLOL HCL 10 MG TAB PO SCH ×2 (08:15→20:59)
[2018-12-22] MEDS: PANTOPRAZOLE SODIUM 40 MG TAB PO SCH (08:15)
[2018-12-22] MEDS ORDERED: ESCITALOPRAM OXALATE 10 MG TAB PO SCH (09:00)
[2018-12-22] MEDS ORDERED: ATENOLOL 25 MG TAB PO SCH (09:00)
--- NOTE | 2018-12-22 09:12 | HOSPPROG ---
Hospitalist Progress Note Assessment/Plan: 73yo F with htn, somewhat chronic diarrhea, recently started on diuretics here with hilda and hyponatremia. #HILDA: Studies c/w prerenal state. Improved with holding lasix, acei. #Hyponatremia: Acutely most c/w hypovolemia. She actually dropped slightly with fluid restriciton/salt tabs. Will administer 500ml of normal saline and recheck this afternoon. #Metabolic acidosis: 2/ #1. Resolved. On sodium bicarb tabs. #Diarrhea: Chronic. Seems c/w malabsorption, ? r/t pancreatic dysfunction. Check fecal fat, fecal elastase #BLE edema: Essentially resolved. #Transaminitis: Fatty liver shown on US. Likely d/t alcohol. #Alcohol use: At risk for mild withdrawal, not interested in quitting. Wine with dinner. #Macrocytic anemia: D/t above. #HTN: BP ok, continue atenolol for now. Holding lisinopril and cristopher. VTE ppx: SCDs Code: full Dispo: Switch to inpatient, possibly home tomorrow Subjective: Feeling great. No leg swelling. She is a bit itchy. Ate the most she 's eaten in months. Still having occasional mucousy stools. Objective: Vital Signs Temp Pulse Resp BP Pulse Ox 36.3 C 62 20 114/54 L 92 12/22/18 07:18 12/22/18 08:15 12/22/18 07:18 12/22/18 08:15 12/22/18 07:18 Microbiology 12/21/18 17:50 Gastrointestinal Tract Panel (PCR) - Final Stool No Organism Detected By Pcr Laboratory Results 12/22/18 04:30 12/22/18 04:30 12/21/18 12/22/18 12/23/18 05:59 05:59 05:59 Intake Total 1500 150 Output Total 700 Balance 800 150 PT 12.2 SEC (12.0-15.0) 12/21/18 11:55 INR 0.94 (0.83-1.16) 12/21/18 11:55 - Physical Exam Constitutional: no apparent distress, appears nourished, not in pain Eyes: PERRL, anicteric sclera, EOMI Ears, Nose, Mouth, Throat: moist mucous membranes, hearing normal, ears appear normal, no oral mucosal ulcers Cardiovascular: regular rate and rhythym, no murmur, rub, or gallop, No edema Respiratory: no respiratory distress, no rales or rhonchi, clear to auscultation Gastrointestinal: normoactive bowel sounds, soft, non-tender abdomen, no palpable masses Genitourinary: no bladder fullness, no bladder tenderness, no renal bruits Skin: erythema (LLE) Musculoskeletal: full muscle strength Neurologic: AAOx3 Psychiatric: interacting appropriately ICD10 Worksheet Patient Problems: Problems Problem Status Onset Acute renal insufficiency Acute Hyponatremia Acute Acute bronchitis Acute Hypoxemia Acute
[2018-12-22] MEDS ORDERED: NS 1,000 ML IV SCH (09:30)
--- NOTE | 2018-12-22 10:19 | SOAPPROG ---
SOAP Progress Note Assessment/Plan: Assessment: hyponatremia, evaluation underway initial urine chems look like SIADH, unfortunately don't have all the urine studies we need drawn at the same time so can be a little confusing stop lexapro chronic diarrhea, will try some cholestyramine daily at 2 PM Plan: see above 12/22/18 10:15 Subjective: feeling a lot better today no cp sob nausea or vomiting has had multiple stools already today, says this is chronic spirits good feels more steady on her feet today slept OK no pain Objective: Vital Signs Temp Pulse Resp BP Pulse Ox 36.3 C 62 20 114/54 L 92 12/22/18 07:18 12/22/18 08:15 12/22/18 07:18 12/22/18 08:15 12/22/18 07:18 Microbiology 12/21/18 17:50 Gastrointestinal Tract Panel (PCR) - Final Stool No Organism Detected By Pcr Laboratory Results 12/22/18 04:30 12/22/18 04:30 12/21/18 12/22/18 12/23/18 05:59 05:59 05:59 Intake Total 1500 150 Output Total 700 Balance 800 150 PT 12.2 SEC (12.0-15.0) 12/21/18 11:55 INR 0.94 (0.83-1.16) 12/21/18 11:55 Physical Exam - Physical Exam General Appearance: alert Neck: normal inspection Respiratory: No rhonchi, No wheezing Cardiac/Chest: regular rate, rhythm, No edema Abdomen: normal bowel sounds, non-tender, soft Skin: other (rash bilat LE, says it is from scratching) Extremities: No swelling Neuro/Psych: alert, normal mood/affect, oriented x 3 ICD10 Worksheet Patient Problems: Problems Problem Status Onset Acute renal insufficiency Acute Hyponatremia Acute Acute bronchitis Acute Hypoxemia Acute
[2018-12-22] MEDS: CHOLESTYRAMINE/SUCROSE 4 GM PKT PO SCH (14:55)
--- NOTE | 2018-12-22 16:09 | ASMTCMCOM ---
CM Note CM Note Notes: Reviewed chart, pt admitted encouraged by pcp for leg swelling. She lives alone in an apartment and has a local dtr. PT/OT has cleared pt for home, anticipate she will dc home when medically stable, CM available for any changes. DC Plan: Independent Date Signed: 12/22/2018 04:09 PM Electronically Signed By:Ragini Porras RN
[2018-12-22] MEDS: SODIUM CHLORIDE 1,000 MG TAB PO SCH (18:21)
[2018-12-22] MEDS: RED WINE 120 ML BOTTLE PO SCH (18:24)
[2018-12-22] MEDS: MIRTAZAPINE 15 MG TAB PO SCH (20:59)
[2018-12-22] MEDS: BUMETANIDE 1 MG TAB PO SCH (20:59)
[2018-12-23] MEDS: HEPARIN 5,000 UNIT/0.5 ML INJ SC SCH (04:31)
[2018-12-23 08:18] VITALS: BP 131/70
--- NOTE | 2018-12-23 08:30 | HOSPPROG ---
Hospitalist Progress Note Assessment/Plan: 73yo F with htn, somewhat chronic diarrhea, recently started on diuretics here with hilda and hyponatremia. First encounter, chart reviewed. #HILDA: Studies c/w prerenal state. -much improved #Hyponatremia -much improved -will cont salt tabs #Metabolic acidosis -resolved #Diarrhea -much improved w cholestyramine #BLE edema: Essentially resolved. #Transaminitis: Fatty liver shown on US. Likely d/t alcohol. #Alcohol use: At risk for mild withdrawal, not interested in quitting. Wine with dinner. #Macrocytic anemia: D/t above. #HTN: BP stable *plan: spoke w Dr Graves; will resume Lexapro,lisinopril, salt tabs x 3 days, hold diuretics and replace w Bumex daily Subjective: Maday feels great; no c/o pain. Objective: Vital Signs Temp Pulse Resp BP Pulse Ox 36.1 C 83 16 131/70 H 92 12/23/18 08:00 12/23/18 08:00 12/23/18 08:00 12/23/18 08:00 12/23/18 08:00 Laboratory Results 12/22/18 04:30 12/23/18 04:29 12/22/18 12/23/18 12/24/18 05:59 05:59 05:59 Intake Total 1500 1030 Output Total 700 400 Balance 800 630 PT 12.2 SEC (12.0-15.0) 12/21/18 11:55 INR 0.94 (0.83-1.16) 12/21/18 11:55 - Physical Exam Constitutional: no apparent distress, appears nourished, not in pain Eyes: PERRL Ears, Nose, Mouth, Throat: hearing normal Cardiovascular: regular rate and rhythym Respiratory: no respiratory distress Skin: warm Musculoskeletal: full muscle strength Neurologic: AAOx3 Psychiatric: interacting appropriately ICD10 Worksheet Patient Problems: Problems Problem Status Onset Acute renal insufficiency Acute Hyponatremia Acute Acute bronchitis Acute Hypoxemia Acute
[2018-12-23] MEDS: SODIUM CHLORIDE 1,000 MG TAB PO SCH (08:46)
[2018-12-23] MEDS: PROPRANOLOL HCL 10 MG TAB PO SCH (08:46)
[2018-12-23] MEDS: PANTOPRAZOLE SODIUM 40 MG TAB PO SCH (08:46)
[2018-12-23] MEDS: BUMETANIDE 1 MG TAB PO SCH (08:46)
[2018-12-23] MEDS: SODIUM BICARBONATE 650 MG TAB PO SCH (08:46)
[2018-12-23] MEDS: CHOLESTYRAMINE/SUCROSE 4 GM PKT PO SCH (08:47)
--- NOTE | 2018-12-23 11:00 | GDS ---
[f rep st] DISCHARGE SUMMARY DISCHARGE DIAGNOSES: 1. Acute kidney injury. 2. Hyponatremia. 3. Metabolic acidosis. 4. Diarrhea. 5. Bilateral lower extremity edema. 6. Transaminitis. 7. Alcohol use. 8. Macrocytic anemia. 9. Hypertension. Briefly, the patient is a very nice 73-year-old woman who was recommended to be admitted by her primary care provider for chronic bilateral leg swelling and hyponatremia. Her primary care provider placed her on water restriction due to these. When she was admitted, her sodium was noted to be 125 with a creatinine of 2.3. Subsequently, she was seen and evaluated by Nephrology. She improved markedly with stopping her diuretics and was placed on Bumex in place of the Aldactone and Lasix. Also, she has chronic diarrhea. She was started on cholestyramine and this has resolved. She will be discharged home and follow up with her primary care provider and Dr. Graves. HOSPITAL COURSE BY PROBLEM: 1. Acute kidney injury, much improved. 2. Hyponatremia, improved. She will take salt tabs for the next 3 days. 3. Metabolic acidosis, resolved. 4. Diarrhea, resolved. 5. Bilateral lower extremity edema, much improved. 6. Transaminitis. Her ultrasound showed a fatty liver. This is likely due to alcohol. 7. Alcohol use, stable. 8. Macrocytic anemia secondary to alcohol use. 9. Hypertension. Blood pressure stable. DISCHARGE CONDITION: Stable. Blood pressure is 131/70, respiratory rate 16, pulse 83, temperature 36.1, O2 sat on room air 92%. MEDICATIONS AT DISCHARGE: Please see the EMR. DISCHARGE INSTRUCTIONS: 1. Stop her Aldactone and Lasix. In place of this will be Bumex. 2. Resume lisinopril and Lexapro. 3. Take the cholestyramine daily at 2 p.m. This is what has helped with her diarrhea. 4. Get a repeat chemistry panel in the middle of next week and follow up with Dr. Graves and her primary care provider. Greater than 30 minutes discharging and coordinating her care. /[id number]/MODL MTDD
== END 2018-12-23 11:34 | disposition home or self-care (01) ==
LOC: F3E 16:01
PROVIDERS: ADMIT Internal Medicine; ATTEND Internal Medicine
DX: N17.9 Acute kidney failure, unspecified (principal); E87.1 Hypo-osmolality and hyponatremia; E87.2 Acidosis; R94.5 Abnormal results of liver function studies; R19.7 Diarrhea, unspecified; R60.9 Edema, unspecified; D64.9 Anemia, unspecified; I10 Essential (primary) hypertension; F10.920 Alcohol use, unspecified with intoxication, uncomplicated; E78.5 Hyperlipidemia, unspecified; F41.9 Anxiety disorder, unspecified; F32.9 Major depressive disorder, single episode, unspecified; Q21.0 Ventricular septal defect; N83.201 Unspecified ovarian cyst, right side; Z87.891 Personal history of nicotine dependence
CPT/HCPCS: 76700; 76856; 96372; 97165; 99285; G0378; J1644; 82710-90

== ENCOUNTER → 2019-02-01 | Outpatient (CLI) | payer OTHER | LOC: FIMAGING 09:45 | PROVIDERS: ATTEND Internal Medicine | DX: N63.12 Unspecified lump in the right breast, upper inner quadrant (principal) ==